=== PATIENT | female | born 2000 | race Caucasian/White ===

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

== ENCOUNTER 2021-06-06 18:58 | Emergency (ER) | payer MEDICAID ==
[2021-06-06 19:10] VITALS: BP 151/85
--- OUTSIDE RECORDS SUMMARY | 2021-06-06 19:19 | EXTERNAL MEDICAL SUMMARY RPT | Continuity of Care Document ---
:2000 Author Organization [facility] [address] [place] [address] Phone Care Team Providers Name Role Phone Miscellaneous, Doctor Unavailable Unavailable WATER TESTER, Chloe Graham, Unavailable Unavailable Allergies No information. Encounters No information. Medications date description facility [id number] Fluconazole 150 MG Oral Tablet [facility] Problems date description facility [id number] Tobacco smoking status [facility] [id number] Pain [facility] throat [facility] [id number] Never smoker [facility] [id number] Details of drug misuse behavior [facility] [id number] Alcohol use [facility] 20210416 Alcohol intake [facility] [id number] Acute pharyngitis, unspecified [facility] [id number] Acute pharyngitis [facility] [id number] Streptococcal pharyngitis [facility] Procedures date description facility [id number] POC STREP TEST [facility] [id number] [facility] Results test status date ordered by attending specimen travis e Streptococcus_pyogenes unknown [id number] unknown unknown unknown _DNA_Presence_in_Throat _by_NAA_with_probe_dete ction Microbial_identificati unknown [id number] unknown unknown unknown on_kit_rapid_strep_meth od facility observation status value reference units lab abnor mal line range code notes [facility] Streptococcus unknown Neg unknown _6048 unkno wn unknown Clinic _pyogenes_DNA_ 9-2 Primary Care Presence_in_Th & Ancillary roat_by_NAA_wi Services th_probe_detec Ben tion [facility] Microbial_ide unknown Neg unknown _3554 unkno wn unknown Clinic ntification_ki Primary Care t_rapid_strep_ & Ancillary method Services [place] Vital Signs date measurement value source [id number] weight_standard 104.33 lb 20210328 weight_metric 47.32 kg 20210328 temperature_standard 97.9 F 20210328 temperature_metric 36.61 C 20210328 respiration_rate 22 /min 20210328 height_standard 64 in 20210328 height_metric 162.56 cm 20210328 heart_rate 117 /min 20210328 BP_systolic 169 mm[Hg] 20210328 BP_diastolic 82 mm[Hg] 20210328 BMI 39.4 kg/m2 20210416 weight_standard 240 lb 20210416 weight_metric 108.86 kg 20210416 temperature_standard 97.6 F 20210416 temperature_metric 36.44 C 20210416 respiration_rate 16 /min 20210416 height_standard 64 in 20210416 height_metric 162.56 cm 20210416 heart_rate 87 /min 20210416 BP_systolic 128 mm[Hg] 20210416 BP_diastolic 82 mm[Hg] 20210416 BMI 41.34 kg/m2
--- NOTE | 2021-06-06 19:47 | ED Physician Documentation ---
History of Present Illness - Stated complaint Stated Complaint: RT KNEE INJ/GLF - Chief complaint Chief Complaint: Trauma Ext - Additonal information Additional information: 21-year-old female presents emergency department for evaluation of acute right knee pain. Reports that she was running with her dog when she got pulled and she inverted her knee. Most of the pain is medial. She has been unable to bear weight since. She allows limited movement of the knee secondary to the pain. She is reporting some distal tingling of the leg. 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 : None HEENT: None Psych: Depression, Anxiety Musculoskeletal: None Derm: None - Past Surgical History Past Surgical History: No - Present Medications Home Medications: Ambulatory Orders Medication Instructions Recorded Confirmed Escitalopram Oxalate [Lexapro] 5 mg PO 01/17/18 QUEtiapine [SEROquel] 25 mg PO ONCE 01/17/18 01/17/18 Ibuprofen [Motrin] 800 mg PO Q8H PRN #30 tablet 02/09/18 Ibuprofen [Motrin] 600 mg PO Q6H PRN #30 tab 06/06/21 - Allergies Allergies/Adverse Reactions: Allergies Allergy/AdvReac Type Severity Reaction Status Date / Time No Known Drug Allergies Allergy Verified 06/06/21 19:09 - Social History Does the pt smoke?: No Smoking Status: Never smoker Does the pt drink ETOH?: No Does the pt have substance abuse?: Yes - Immunizations Immunizations are current?: Yes - POLST Patient has POLST: No PD ED PE EXPANDED - General General: Alert, In Pain - Extremities Extremities: Right knee (2+ DP pulse. Tender Medial joint line. Mild laxity. Patient refuses to extend the knee secondary to pain. Mild swelling. No ecchymosis. Distal sensation preserved.) Results - Vitals Vitals: Vital Signs - 24 hr 06/06/21 19:08 Temperature 36.5 C Heart Rate 97 Respiratory 20 Rate Blood Pressure 151/85 H O2 Saturation 96 Oxygen O2 Source Room air - Rads (name of study) Right knee Radiology: Final report received (No fracture demonstrated) PD MEDICAL DECISION MAKING - ED course Complexity details: reviewed results, re-evaluated patient, d/w patient ED course: 19-year-old female presents emergency department for acute right knee pain. She was running with her dogs when she got pulled and inverted the knee. Unable to bear weight since. She does have most of her tenderness on the lateral edge of the knee. She is unwilling to flex or extend though with prompting she can. X-ray is without acute findings. As we discussed at the bedside I suspect that she likely has a meniscal and ligament injury. She is placed in knee immobilizer and crutches. Advised nonweightbearing NSAID meds. If not markedly better she may benefit from referral to physical therapy or orthopedics. Departure - Departure Disposition: 01 Home, Self Care Clinical Impression: Right knee sprain Qualifiers: Encounter type: initial encounter Involved ligament of knee: lateral collateral ligament Qualified Code(s): S83.421A - Sprain of lateral collateral ligament of right knee, initial encounter Condition: Stable Record reviewed to determine appropriate education?: Yes Instructions: ED Sprain Knee Follow-Up: [facility] [Provider Group] Prescriptions: Ibuprofen [Motrin] 600 mg PO Q6H PRN #30 tab PRN Reason: Pain Comments: You are seen today for severe pain in the right knee. I suspect that you have a severe knee sprain. The x-ray does not show any broken bones. Most knee sprains will begin to heal with conservative treatment which includes nonweightbearing of the knee, icing it and taking ibuprofen. If over the next 7 to 10 days you find that your symptoms are not markedly improving you should follow-up with a primary care doctor to obtain referral for physical therapy or to an orthopedic doctor. A prescription for ibuprofen has been sent to the [facility] in [place]
[2021-06-06] MEDS: KETOROLAC 60 MG/2 ML VIAL IM STA (19:50)
--- NOTE | 2021-06-06 20:45 | XRAY Report ---
PROCEDURE: Knee 3 View RT INDICATIONS: pain after glf; numbness distal to injury TECHNIQUE: 4 views of the right knee(s) were acquired. COMPARISON: None. FINDINGS: Bones: No fractures or dislocations. No suspicious bony lesions. Soft tissues: No significant joint effusion. No suspicious soft tissue calcifications. IMPRESSION: No fracture demonstrated. Consider follow-up radiographs in 10-14 days. Reviewed by: Osmin Sapp MD on 06/06/2021 8:43 PM PDT Approved by: Osmin Sapp MD on 06/06/2021 8:43 PM PDT Station ID: [id number]
== END 2021-06-06 21:18 | disposition home or self-care (01) ==
LOC: ED 18:58
DX: S83.421A Sprain of lateral collateral ligament of right knee, initial encounter (principal); X50.1XXA Overexertion from prolonged static or awkward postures, initial encounter; Y93.02 Activity, running
CPT/HCPCS: 96372; 99282; 99283

== ENCOUNTER 2021-08-06 21:50 | Emergency (ER) | payer MEDICAID ==
[2021-08-06] MEDS ORDERED: TETANUS/DIPHTHERIA/PERTUSSIS 0.5 ML SYRINGE IM ONE (22:27)
--- NOTE | 2021-08-06 22:30 | ED Physician Documentation ---
PD HPI LOWER EXT INJURY - Stated complaint Stated Complaint: L FOOT LAC - Chief complaint Chief Complaint: Laceration - History obtained from History obtained from: Patient - Additional information Additional information: Patient is a 21-year-old female presenting for evaluation of laceration to the dorsum of her left foot that occurred just prior to arrival. She broke a glass jar in her bathroom a few days ago and thought she had cleaned up all the pieces. She had stepped on a piece of glass with her right foot and tried to wipe it off on her left foot which then cut her. She did not sustain a laceration to her right foot. She is not concerned for foreign body as the piece was larger. She is unsure of her last tetanus. She does not take blood thinners. 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 : None HEENT: None Psych: Depression, Anxiety Musculoskeletal: None Derm: None - Past Surgical History Past Surgical History: No - Present Medications Home Medications: Ambulatory Orders Medication Instructions Recorded Confirmed Escitalopram Oxalate [Lexapro] 5 mg PO 01/17/18 QUEtiapine [SEROquel] 25 mg PO ONCE 01/17/18 01/17/18 Ibuprofen [Motrin] 800 mg PO Q8H PRN #30 tablet 02/09/18 Ibuprofen [Motrin] 600 mg PO Q6H PRN #30 tab 06/06/21 - Allergies Allergies/Adverse Reactions: Allergies Allergy/AdvReac Type Severity Reaction Status Date / Time No Known Drug Allergies Allergy Verified 08/06/21 21:57 - Social History Does the pt smoke?: No Smoking Status: Never smoker Does the pt drink ETOH?: No Does the pt have substance abuse?: Yes - Immunizations Immunizations are current?: Yes - POLST Patient has POLST: No PD ED PE NORMAL - General General: Alert and oriented X 3, No acute distress, Well developed/nourished - HEENT HEENT: Atraumatic - Neck Neck: Supple, no meningeal sign - Cardiac Cardiac: Strong equal pulses - Respiratory Respiratory: No respiratory distress - Extremities Extremities: No tenderness to palpate, Normal ROM s pain, No edema, Other (1.5 cm laceration to dorsum of left foot) PD ED PE EXPANDED - Extremities Extremities: Pedal Pulses Present, Motor intact, Sensory intact, Vascular intact, Tendon intact Feet visual: 1 - laceration Results - Vitals Vitals: Vital Signs - 24 hr 08/06/21 08/06/21 21:55 22:51 Temperature 36.8 C Heart Rate 88 90 Respiratory 18 Rate Blood Pressure 138/78 H 129/59 L O2 Saturation 99 100 Oxygen O2 Source Room air Procedures - Laceration (location) L foot Length in cm: 1 Wound type: Curved Neurovascular status: Sensory intact, Motor intact, Vascular intact Tendon involvement: Tendon intact Wound preparation: Hibiclens, Irrigated copiously NS Skin layer closure: Dermabond, Steri strips Other: Patient tolerated well, No complications, Neurovascular intact, Dressing applied, Tetanus booster given PD MEDICAL DECISION MAKING - ED course ED course: Patient with laceration to dorsum of left foot. Neurovascularly intact. Wound explored and no signs of foreign body. Wound was cleaned. Discussed options for wound closure and patient does not want sutures. She requested skin glue. I explained The risks of using skin glue and Steri-Strips to an area that may become wet or moist and may fall off too soon. She is aware that if the wound opens up that we would not reclose it at a later time and would have to heal with secondary intention which may lead to a scar. She is understanding of these risks and still wishes to proceed with Dermabond and Steri-Strips versus sutures.Patient tolerated wound closure.= And is advised on return precautions. Departure - Departure Disposition: 01 Home, Self Care Clinical Impression: Laceration of left foot Qualifiers: Encounter type: initial encounter Qualified Code(s): S91.312A - Laceration without foreign body, left foot, initial encounter Condition: Stable Instructions: ED Laceration Foot Comments: You were evaluated for a cut to your left foot.I did not see any evidence of a foreign body such as glass in the wound. We did update your tetanus shot. After discussion regarding the options, we agreed to close the wound with glue and special tape. Please keep the wound clean and dry. The glue and tape will come off on their own Over the course of the next week. If you have any signs of infection such as swelling, redness, abnormal drainage please return to the emergency department. Discharge Date/Time: 08/06/21 22:50
[2021-08-06 22:51] VITALS: BP 129/59
== END 2021-08-06 22:50 | disposition home or self-care (01) ==
LOC: ED 21:50
DX: S91.312A Laceration without foreign body, left foot, initial encounter (principal); W25.XXXA Contact with sharp glass, initial encounter; Y92.002 Bathroom of unspecified non-institutional (private) residence as the place of occurrence of the external cause; Z23 Encounter for immunization; Z71.85 Encounter for immunization safety counseling
CPT/HCPCS: 12001; 90471; 99283

== ENCOUNTER 2021-11-27 15:13 | Outpatient (CLI) | payer MEDICAID ==
[2021-11-27 20:40] LABS: ESTIMATED AVERAGE GLUCOSE 103 mg/dL (70-100); HEMOGLOBIN A1c% 5.2 % (4.27-6.07)
== END 2021-11-27 15:14 | disposition home or self-care (01) ==
LOC: LAB 15:13
PROVIDERS: ATTEND Nurse Practitioner
DX: F41.8 Other specified anxiety disorders (principal); E66.9 Obesity, unspecified
CPT/HCPCS: 36415; 83036; 84443